=== PATIENT | female | born 1945 | race Two or more races ===

== ENCOUNTER 2020-12-20 15:28 | Inpatient (IN) | payer BC, SELFPAY ==
[~2020-12-20] VITALS: Ht 157.5 cm; Wt 68.0 kg
[2020-12-20 15:35] VITALS: BP 90/46
[2020-12-20] MEDS ORDERED: LIDOCAINE/EPI 1% 1:100000 20 ML VIAL INJ ONE (15:35)
--- NOTE | 2020-12-20 15:35 | NUR ---
BIBA TO BED 02
[2020-12-20] MEDS ORDERED: TRANEXAMIC ACID 1,000 MG/10 ML VIAL MC ONE (15:40)
[2020-12-20] MEDS ORDERED: NACL 0.9% 1,000 ML IV ONE (15:40)
--- NOTE | 2020-12-20 15:40 | NUR ---
DR HERNANDEZ AT BEDSIDE EXAMINING PT
--- NOTE | 2020-12-20 15:40 | NUR ---
75 Y/O FEMALE BIBA FROM HOME C/O RECTAL BLEEDING X1 HOUR AGO. PER EMS PT HAD 30-40 ML OF BLEEDING AT HOME. WITH NAUSEA/VOMITING. PALE, COOL TO TOUCH. LT AC 20 G PLACED BY EMS INFUSING NS BOLUS. [facility] GAVE ZOFRAN. MEDHX: DM, HTN, STENTS, SURGERY FOR HEMORRHOIDS, AND ON BLOOD THINNERS NKA
--- NOTE | 2020-12-20 15:45 | NUR ---
DR HERNANDEZ AT BEDSIDE PERFORMING PROCEDURE
--- NOTE | 2020-12-20 16:11 | NUR ---
BLOOD LABS COLLECTED AND SENT TO LAB
--- NOTE | 2020-12-20 16:19 | NUR ---
DAUGHTER AT BEDSIDE
[2020-12-20] MEDS ORDERED: AMLO10TA89 PO (16:39)
[2020-12-20] MEDS ORDERED: CLOP75TA55 PO (16:39)
[2020-12-20] MEDS ORDERED: LEVO125C2 PO (16:39)
[2020-12-20] MEDS ORDERED: ASPI-1749 PO (16:39)
[2020-12-20] MEDS ORDERED: METO25TE2 PO (16:39)
[2020-12-20] MEDS ORDERED: CHLO25TA33 PO (16:39)
[2020-12-20] MEDS ORDERED: GLIP5TER PO (16:39)
[2020-12-20] MEDS ORDERED: SIMV20TA1 PO (16:39)
[2020-12-20] MEDS ORDERED: PAX10 PO (16:39)
[2020-12-20] MEDS ORDERED: POTA10TE30 PO (16:39)
[2020-12-20 16:48] LABS: BASOPHILS # (AUTO) 0.1 K/uL (0.00-0.22); BASOPHILS % (AUTO) 0.6 % (0.0-2.0); EOSINOPHILS # (AUTO) 0.2 K/uL (0-0.4); EOSINOPHILS % (AUTO) 1.5 % (0.0-4.0); HEMATOCRIT 27.2 % (36-48); HEMOGLOBIN 8.7 g/dL (12.0-16.0); LYMPHOCYTES # (AUTO) 3.3 K/uL (2.5-16.5); LYMPHOCYTES % (AUTO) 21.3 % (20.5-51.1); MEAN CORPUSCULAR HEMOGLOBIN 24 pg (27-31); MEAN CORPUSCULAR HGB CONC 32 g/dL (33-37); MEAN CORPUSCULAR VOLUME 73.8 fL (80-94); MONOCYTES # (AUTO) 1.1 K/uL (0.8-1.0); MONOCYTES % (AUTO) 7.1 % (1.7-9.3); NEUTROPHILS # (AUTO) 10.8 K/uL (1.8-7.7); NEUTROPHILS % (AUTO) 69.5 % (42.2-75.2); PLATELET COUNT (AUTO) 393 K/uL (140-450); RED BLOOD CELL COUNT(AUTO) 3.68 MIL/uL (4.20-5.40); WHITE BLOOD COUNT (AUTO) 15.5 K/uL (4.8-10.8)
[2020-12-20 16:57] LABS: PROTHROMBIN TIME 10.8 secs (10.8-13.4)
[2020-12-20 16:59] LABS: ALBUMIN 2.9 g/dL (3.4-5.0); ANION GAP 16.2 (8-16); ASPARTATE AMINOTRANSFERASE 26 U/L (15-37); CARBON DIOXIDE 20.5 mmol/L (21-32); CHLORIDE 108 mmol/L (98-107); CREATININE 1.5 mg/dL (0.6-1.3); GLUCOSE 265 mg/dL (74-106); LIPASE 58 U/L (73-393); POTASSIUM 3.7 mmol/L (3.5-5.1); SODIUM SERUM 141 mmol/L (136-145); TOTAL BILIRUBIN 0.4 mg/dL (0.0-1.0); UREA NITROGEN, BLOOD 22 mg/dL (7-18)
[2020-12-20] MEDS ORDERED: MORPHINE SULFATE 4 MG/ML SYR IVP ONE (17:10)
--- NOTE | 2020-12-20 17:39 | NUR ---
NGA SWAB COLLECTED AND SENT TO LAB
--- NOTE | 2020-12-20 18:09 | NUR ---
OH AT BEDSIDE EXAMINING PT
--- NOTE | 2020-12-20 19:03 | NUR ---
PT REQKIMBERLYNING FOR ICE CHIPS. PER DR ANGELA MOULTON TO GIVE. PROVIDED PT ICE CHIPS.
--- NOTE | 2020-12-20 19:14 | NUR ---
Pt report given to FREDDY PRADO. Transfer of care at this time.
--- NOTE | 2020-12-20 19:45 | NUR ---
RESTING WITH EYESOPEN RESPIRATIONS REGULAR AND UNLABORED.
--- NOTE | 2020-12-20 20:30 | NUR ---
AWAKE, DIAPER CHANGED, SMALL AMOUNT RED DRAINAGE NOTED. REPOSITIONED FOR COMFORT
[2020-12-20] MEDS ORDERED: POTASSIUM CHLORIDE 10 MEQ TABER PO PRN (21:00)
[2020-12-20] MEDS ORDERED: MORPHINE SULFATE 4 MG/ML SYR IVP PRN (21:00)
[2020-12-20] MEDS ORDERED: KCL 20 MEQ/WATER INJ PREMIX 200 ML IV PRN (21:00)
[2020-12-20] MEDS ORDERED: MAGNESIUM OXIDE 400 MG TAB PO PRN (21:00)
[2020-12-20] MEDS ORDERED: ACETAMINOPHEN 325 MG TAB PO PRN (21:00)
[2020-12-20] MEDS ORDERED: MAG SULF 2000 MG/WATER PREMIX 50 ML IV PRN (21:00)
[2020-12-20] MEDS ORDERED: ONDANSETRON 4 MG/2 ML VIAL IVP PRN (21:00)
[2020-12-20] MEDS: NACL 0.9% 1,000 ML IV SCH (22:35)
--- NOTE | 2020-12-21 | NUR ---
RESTING COMFORTABLY, AWAKE. WATER GICEN
--- NOTE | 2020-12-21 02:00 | NUR ---
Patient appears to be resting comfortably in bed. Vital Signs within normal limits. Respirations even and unlabored.
--- NOTE | 2020-12-21 06:00 | NUR ---
RESTING IN BEDWITH EYES CLOSED. RESPIRATIONS REGULAR AND UNLABORED
[2020-12-21 06:57] LABS: BASOPHILS # (AUTO) 0.1 K/uL (0.00-0.22); BASOPHILS % (AUTO) 0.6 % (0.0-2.0); EOSINOPHILS % (AUTO) 0.1 % (0.0-4.0); HEMATOCRIT 23.3 % (36-48); HEMOGLOBIN 7.5 g/dL (12.0-16.0); LYMPHOCYTES # (AUTO) 1.6 K/uL (2.5-16.5); LYMPHOCYTES % (AUTO) 19.4 % (20.5-51.1); MEAN CORPUSCULAR HEMOGLOBIN 24 pg (27-31); MEAN CORPUSCULAR HGB CONC 32 g/dL (33-37); MEAN CORPUSCULAR VOLUME 74.5 fL (80-94); MONOCYTES # (AUTO) 0.7 K/uL (0.8-1.0); MONOCYTES % (AUTO) 7.9 % (1.7-9.3); NEUTROPHILS # (AUTO) 6.1 K/uL (1.8-7.7); PLATELET COUNT (AUTO) 260 K/uL (140-450); RED BLOOD CELL COUNT(AUTO) 3.13 MIL/uL (4.20-5.40); WHITE BLOOD COUNT (AUTO) 8.5 K/uL (4.8-10.8)
[2020-12-21 07:10] LABS: ALBUMIN 2.8 g/dL (3.4-5.0); ANION GAP 12.5 (8-16); ASPARTATE AMINOTRANSFERASE 19 U/L (15-37); CARBON DIOXIDE 22.6 mmol/L (21-32); CHLORIDE 106 mmol/L (98-107); GLUCOSE 254 mg/dL (74-106); SODIUM SERUM 135 mmol/L (136-145); TOTAL BILIRUBIN 0.4 mg/dL (0.0-1.0); UREA NITROGEN, BLOOD 33 mg/dL (7-18)
[2020-12-21 07:14] LABS: POTASSIUM 6.1 mmol/L (3.5-5.1)
[2020-12-21 07:31] LABS: PROTHROMBIN TIME 10.4 secs (10.8-13.4)
--- NOTE | 2020-12-21 07:45 | NUR ---
Spoke to Dr. Coon, made aware of porassiaum 6.1, new order noted and carried out. Pt is resting comfortably in bed. No distress at this time.
--- NOTE | 2020-12-21 08:57 | NUR ---
Patient will be admitted to care of DR. Chauhan. Admited to TELE. Will go to room 123b. Belongings list completed. Report to . Addendum: 12/21/20 at 1122 by [facility] Report given to Steve PRADO
--- NOTE | 2020-12-21 08:57 | NUR ---
RECEIVED REPORT FROM ER NURSE OVER THE PHONE. AWAITING FOR PATIENT TO ARRIVE TO THE UNIT.
[2020-12-21 08:59] VITALS: BP 137/64
--- NOTE | 2020-12-21 08:59 | NUR ---
PATIENT HAS BEEN SCREENED AND CATEGORIZED LOW NUTRITION RISK. PATIENT WILL BE SEEN WITHIN 7 DAYS OF ADMISSION. 12/27/[address]
--- NOTE | 2020-12-21 10:15 | NUR ---
MD AT BEDSIDE DISCUSSING PLAN OF CARE W/ PATIENT. ENDORSED TO PATIENT THE RISK AND BENEFITS OF BLOOD TRANSFUSION. PT VERBALIZED UNDERSTANDING. WITNESS BOTH MD AND PATIENT SIGN THE CONSENT FORM FOR BLOOD TRANSFUSION.
[2020-12-21] MEDS ORDERED: ACETAMINOPHEN EXTRA STRENGTH 500 MG TAB PO SCH (10:18)
[2020-12-21] MEDS: NACL 0.9% 1,000 ML IV SCH ×5 (10:30→23:15)
[2020-12-21 10:34] LABS: ALBUMIN 2.9 g/dL (3.4-5.0); ANION GAP 13.3 (8-16); ASPARTATE AMINOTRANSFERASE 18 U/L (15-37); CARBON DIOXIDE 22.7 mmol/L (21-32); CHLORIDE 107 mmol/L (98-107); CREATININE 2.1 mg/dL (0.6-1.3); GLUCOSE 235 mg/dL (74-106); SODIUM SERUM 138 mmol/L (136-145); TOTAL BILIRUBIN 0.4 mg/dL (0.0-1.0); UREA NITROGEN, BLOOD 34 mg/dL (7-18)
[2020-12-21 12:00] VITALS: BP 140/56
--- NOTE | 2020-12-21 12:30 | NUR ---
WAS NOTIFIED BY DR. DE LUNA THAT PATIENT WILL BE HAVING A PROCEDURE TODAY. SETTING UP CONSENT FORMS FOR .
[2020-12-21] MEDS ORDERED: LIDOCAINE 1% 500 MG/50 ML VIAL ONE (13:05)
[2020-12-21] MEDS ORDERED: BUPIVACAINE-MPF 0.25% 30 ML VIAL INJ ONE (13:05)
[2020-12-21] MEDS ORDERED: HYDROGEN PEROXIDE 3% 240 ML BTL TP ONE (13:06)
--- NOTE | 2020-12-21 13:15 | NUR ---
PATIENT TRANSPORTED TO OR UNIT.
[2020-12-21] MEDS ORDERED: fentaNYL citrate 0.05 MG/ML VIAL ONE (13:28)
[2020-12-21] MEDS ORDERED: SEVOFLURANE 250 ML BTL INH ONE (13:45)
[2020-12-21] MEDS ORDERED: HYDROcodone/APAP 5/325 MG 1 TAB TAB PO PRN (14:00)
[2020-12-21] MEDS ORDERED: GELATIN SPONGE 100 1 SPG TP ONE (14:11)
[2020-12-21] MEDS ORDERED: DEXTROSE 50% 50 ML SYR IVP PRN (14:40)
[2020-12-21] MEDS ORDERED: ETOMIDATE 20 MG/10 ML VIAL IVP ONE (14:40)
[2020-12-21] MEDS ORDERED: METOCLOPRAMIDE 10 MG/2 ML INJ VIAL ONE (14:41)
[2020-12-21] MEDS ORDERED: ONDANSETRON 4 MG/2 ML VIAL ONE (14:41)
[2020-12-21] MEDS ORDERED: SUCCINYLCHOLINE CHLORIDE 200 MG/10 ML VIAL IVP ONE (14:41)
[2020-12-21] MEDS ORDERED: ROCURONIUM 50 MG/5 ML VIAL IV ONE (14:41)
[2020-12-21] MEDS ORDERED: LIDOCAINE MPF 2% 100 MG/5 ML VIAL INJ ONE (14:41)
[2020-12-21] MEDS ORDERED: GLYCOPYRROLATE 0.2 MG/ML VIAL ONE ×2 (14:41→14:42)
[2020-12-21] MEDS ORDERED: NEOSTIGMINE 1:1000 10 MG/10 ML VIAL ONE (14:42)
[2020-12-21] MEDS ORDERED: fentaNYL citrate 0.05 MG/ML VIAL IVP PRN (14:55)
[2020-12-21] MEDS ORDERED: BLOOD GLUCOSE MONITORING 1 DEV DEV FS ONE (14:55)
[2020-12-21] MEDS ORDERED: ONDANSETRON 4 MG/2 ML VIAL IVP PRN (14:55)
[2020-12-21] MEDS ORDERED: diphenhydrAMINE 50 MG/ML VIAL IVP PRN (14:55)
[2020-12-21] MEDS ORDERED: MEPERIDINE 25 MG/ML SYR IVP PRN (14:55)
--- NOTE | 2020-12-21 15:45 | NUR ---
PATIENT TRANSFERRED BACK TO HER ROOM. PT IS AWAKE AND STABLE. WILL ASSESS VITAL SIGNS FOR THE NEXT 2 HOURS Addendum: 12/21/20 at 1813 by Steve Howard RN RN S/P 1 UNIT OF PRBC
[2020-12-21 16:00] VITALS: BP 133/76
--- NOTE | 2020-12-21 17:27 | NUR ---
PATIENT COMPLAINED OF 10/10 RECTUM PAIN. ADMINISTERED PRN PAIN MEDICATIONS PER MD ORDERED.
[2020-12-21] MEDS: BLOOD GLUCOSE MONITORING 1 DEV DEV FS SCH ×2 (17:30→20:50)
--- NOTE | 2020-12-21 17:30 | NUR ---
BLOOD GLUCOSE CHECK WAS 241. INSULIN COVERAGE NEEDED. ADMINISTERED 4 UNITS OF INSULIN SQ PER MD ORDERED.
[2020-12-21] MEDS: INSULIN LISPRO SLIDING SCALE 100 UNITS/ML VIAL SUBQ PRN ×2 (17:35→20:52)
--- NOTE | 2020-12-21 19:25 | NUR ---
ENDORSED TO SEED SALES MANAGER NURSE FOR CONTINUITY OF CARE. PT IS STABLE.
--- NOTE | 2020-12-21 19:26 | NUR ---
RECEIVED REPORT FROM AM NURSE. PATIENT LYING IN BED COMFORTABLY. NO SOB NOTED. SAFETY MEASURES IN PLACE. IVF INFUSING AND TOLERATING WELL. NO COMPLAINTS OF PAIN AT THIS TIME. CALL LIGHT WITHIN REACH. WILL CONTINUE TO MONITOR.
[2020-12-21 20:00] VITALS: BP 108/54
[2020-12-22] VITALS: BP 112/52
[2020-12-22] MEDS: HYDROcodone/APAP 5/325 MG 1 TAB TAB PO PRN ×2 (00:27→10:37)
[2020-12-22] MEDS: NACL 0.9% 1,000 ML IV SCH ×3 (02:43→16:44)
[2020-12-22 04:00] VITALS: BP 137/54
--- NOTE | 2020-12-22 04:00 | NUR ---
NO BLEEDING NOTED AT THIS TIME.
[2020-12-22 06:16] LABS: ALBUMIN 2.9 g/dL (3.4-5.0); ANION GAP 18.8 (8-16); ASPARTATE AMINOTRANSFERASE 17 U/L (15-37); CARBON DIOXIDE 18.9 mmol/L (21-32); CHLORIDE 108 mmol/L (98-107); CREATININE 1.5 mg/dL (0.6-1.3); GLUCOSE 203 mg/dL (74-106); MAGNESIUM 1.8 mg/dL (1.8-2.4); POTASSIUM 4.7 mmol/L (3.5-5.1); SODIUM SERUM 141 mmol/L (136-145); TOTAL BILIRUBIN 0.7 mg/dL (0.0-1.0); UREA NITROGEN, BLOOD 25 mg/dL (7-18)
[2020-12-22] MEDS: INSULIN LISPRO SLIDING SCALE 100 UNITS/ML VIAL SUBQ PRN ×4 (06:39→20:41)
[2020-12-22] MEDS: BLOOD GLUCOSE MONITORING 1 DEV DEV FS SCH ×4 (06:39→21:41)
[2020-12-22 06:48] LABS: BASOPHILS # (AUTO) 0.1 K/uL (0.00-0.22); BASOPHILS % (AUTO) 0.8 % (0.0-2.0); EOSINOPHILS # (AUTO) 0.2 K/uL (0-0.4); EOSINOPHILS % (AUTO) 2.4 % (0.0-4.0); HEMATOCRIT 26.7 % (36-48); HEMOGLOBIN 8.6 g/dL (12.0-16.0); LYMPHOCYTES # (AUTO) 2.3 K/uL (2.5-16.5); MEAN CORPUSCULAR HEMOGLOBIN 25 pg (27-31); MEAN CORPUSCULAR HGB CONC 32 g/dL (33-37); MEAN CORPUSCULAR VOLUME 76.9 fL (80-94); MONOCYTES # (AUTO) 0.9 K/uL (0.8-1.0); MONOCYTES % (AUTO) 8.9 % (1.7-9.3); NEUTROPHILS # (AUTO) 6.2 K/uL (1.8-7.7); NEUTROPHILS % (AUTO) 63.9 % (42.2-75.2); PLATELET COUNT (AUTO) 226 K/uL (140-450); RED BLOOD CELL COUNT(AUTO) 3.47 MIL/uL (4.20-5.40); RED CELL DISTRIBUTION WIDTH 24.7 % (11.6-13.7); WHITE BLOOD COUNT (AUTO) 9.7 K/uL (4.8-10.8)
--- NOTE | 2020-12-22 07:35 | NUR ---
ENDORSED TO AM NURSE FOR CONTINUITY OF CARE. PT IS STABLE.
--- NOTE | 2020-12-22 07:54 | NUR ---
RECEIVED PT AWAKE, ORIENTED, NO PAIN NOTED, SKIN WARM TO TOUCH RESP. EVEN AND UNLABORED, PER PT WHEN SHE HAS BOWEL MOVEMENT WITH TINGED BLOOD , NO DIZZINESS NOTED, ON ROOM AIR, CALL LIGHT WITHIN EASY REACH.
[2020-12-22 08:20] VITALS: BP 163/71
--- NOTE | 2020-12-22 10:29 | NUR ---
DR SADLER AT BEDSIDE
--- NOTE | 2020-12-22 10:48 | NUR ---
PATIENT ALERT, AWAKE WATCHING TV AT THIS TIME, VERY COOPERATIVE, NO UNUSUAL OBSERVATION NOTED.
--- NOTE | 2020-12-22 13:55 | NUR ---
ASSISTED TO THE BATHROOM, PATIENT ALERT, ORIENTED, NO SOB NOTED, NO BLEEDING NOTED
--- NOTE | 2020-12-22 15:37 | NUR ---
DC PLANNING: CM MET WITH PATIENT AT BEDSIDE. PATIENT ADMITTED THROUGH THE ER WITH RECTAL S/P SURGERY AT [facility] ABOUT A WEEK AGO. PATIENT HAD BEEN SEEN AT HER PCP'S OFFICE AND WAS DIRECTED TO GO TO [facility], PATIENTS DAUGHTER FELT SHE WAS BLEEDING TOO MUCH AND CALLED 911 WHO BROUGHT HER HERE. THE PATIENT LIVES ALONE IN A SINGLE [place]ORY [place], NO RECENT H/O HOME HEALTH, HAS DME OF A GLUCOMETER. THE PATIENT CHECKS HER BLOOD SUGARS INFREQUENTLY AND DOES FOLLOW UP WITH HER PCP TWICE A YEAR. HER DAUGHTER, GRANDCHILDREN AND FRIENDS PROVIDE TRANSPORT NEEDED AND THE PATIENT SOMETIMES DRIVES WHEN SHE FEELS WELL ENOUGH. SHE STATES THAT HOME HEALTH WAS SET UP FOR HER AT [facility], CM LEFT A VM FOR [facility] [employer] [facility]FT ([phone]) ENDORSING THAT PATIENT WILL STILL NEED HOME HEALTH AND ASKING FOR THEIR NAME AND CONTACT INFORMATION. CM WILL FOLLOW FOR NEEDS. Addendum: 12/24/20 at 1203 by Cony Renee CM DC PLANNING: ORDER RECEIVED TO SET UP A TELE VIDEO VISIT THROUGH [facility]. ANA SPOKE WITH ANA METZ FOR [facility] WHO STATES THEY HAVE ALREADY SET UP HER APPOINTMENT. CM WILL FOLLOW NEEDED.
--- NOTE | 2020-12-22 16:57 | NUR ---
PT ALERT ORIENTED, NO C/O PAIN PER PATIENT HER DAUGHTER CANCEL HER APPOINTMENT FOR TOMORROW AND WILL JUST RESCHEDULE, VF ONGOING WELL TOLERATED, PER PT SHE WILL GO HOME TOMORROW
[2020-12-22 18:08] VITALS: BP 162/56
--- NOTE | 2020-12-22 18:49 | NUR ---
PATIENT EATING AT THIS TIME, NO UNUSUAL OBSERVATION NOTED
--- NOTE | 2020-12-22 19:20 | NUR ---
RECEIVED PT ON BED WATCHING TV, AAOX4, ABLE TO MAKE NEEDS KNOWN, IVF INFUSING WELL, DENIES ANY PAIN, PLAN OF CARE DISCUSSED, SAFETY MEASURES IN PLACE, CALL LIGHT WITHIN REACH.
[2020-12-22 20:00] VITALS: BP 149/81
--- NOTE | 2020-12-22 21:00 | NUR ---
BLOOD SUGAR CHECKED WITH 186 RESULT, COVERAGE GIVEN, SNACK PROVIDED, ALL NEEDS ATTENDED.
--- NOTE | 2020-12-22 23:50 | NUR ---
AMBULATED TO BR WITH STEADY GAIT, STATED VOIDED FREELY, NO BLEEDING NOTED, IVF INFUSING WELL, MONITORED CLOSELY.
[2020-12-23] MEDS: NACL 0.9% 1,000 ML IV SCH ×2 (00:15→05:02)
--- NOTE | 2020-12-23 01:30 | NUR ---
PT SLEEPING, NO SIGNS OF DISTRESS, IVF INFUSING WELL, MONITORED CLOSELY.
[2020-12-23 04:00] VITALS: BP 155/73
--- NOTE | 2020-12-23 04:10 | NUR ---
PT SLEEPING, EASILY AROUSABLE, VITAL SIGNS TAKEN, BP SLIGHTLY ELEVATED, ASYMPTOMATIC, DENIES CHEST PAIN, NO SOB NOTED, IVF INFUSING WELL, MONITORED CLOSELY.
[2020-12-23 05:47] LABS: BASOPHILS % (AUTO) 0.6 % (0.0-2.0); EOSINOPHILS # (AUTO) 0.2 K/uL (0-0.4); EOSINOPHILS % (AUTO) 3.6 % (0.0-4.0); HEMATOCRIT 23.8 % (36-48); HEMOGLOBIN 7.8 g/dL (12.0-16.0); LYMPHOCYTES # (AUTO) 1.2 K/uL (2.5-16.5); LYMPHOCYTES % (AUTO) 21.4 % (20.5-51.1); MEAN CORPUSCULAR HEMOGLOBIN 25 pg (27-31); MEAN CORPUSCULAR HGB CONC 33 g/dL (33-37); MEAN CORPUSCULAR VOLUME 77.5 fL (80-94); MONOCYTES # (AUTO) 0.5 K/uL (0.8-1.0); MONOCYTES % (AUTO) 9.4 % (1.7-9.3); NEUTROPHILS # (AUTO) 3.8 K/uL (1.8-7.7); PLATELET COUNT (AUTO) 193 K/uL (140-450); RED BLOOD CELL COUNT(AUTO) 3.06 MIL/uL (4.20-5.40); RED CELL DISTRIBUTION WIDTH 25.4 % (11.6-13.7); WHITE BLOOD COUNT (AUTO) 5.8 K/uL (4.8-10.8)
[2020-12-23 05:58] LABS: PROTHROMBIN TIME 10.5 secs (10.8-13.4)
[2020-12-23] MEDS: INSULIN LISPRO SLIDING SCALE 100 UNITS/ML VIAL SUBQ PRN ×2 (06:06→12:15)
--- NOTE | 2020-12-23 06:06 | NUR ---
BLOOD SUGAR CHECKED WITH 165 RESULT, RISS COVERAGE GIVEN, DENIES ANY PAIN, IVF INFUSING WELL, MONITORED CLOSELY.
[2020-12-23 06:28] LABS: ALBUMIN 2.5 g/dL (3.4-5.0); ANION GAP 14.1 (8-16); ASPARTATE AMINOTRANSFERASE 19 U/L (15-37); CARBON DIOXIDE 22.2 mmol/L (21-32); CHLORIDE 109 mmol/L (98-107); CREATININE 0.9 mg/dL (0.6-1.3); GLUCOSE 166 mg/dL (74-106); MAGNESIUM 1.5 mg/dL (1.8-2.4); POTASSIUM 4.3 mmol/L (3.5-5.1); SODIUM SERUM 141 mmol/L (136-145); TOTAL BILIRUBIN 0.6 mg/dL (0.0-1.0); UREA NITROGEN, BLOOD 7 mg/dL (7-18)
[2020-12-23] MEDS: BLOOD GLUCOSE MONITORING 1 DEV DEV FS SCH ×2 (06:43→11:51)
--- NOTE | 2020-12-23 07:20 | NUR ---
PT AWAKE, NO SIGNS OF DISTRESS, REPORT GIVEN TO RN VANESA FOR CONTINUITY OF CARE.
--- NOTE | 2020-12-23 07:25 | NUR ---
REPORT RECEIVED FROM SUPERVISOR INSPECTION RN. PT RESTING IN BED, EYES CLOSED BREATHING IS SYMMETRICAL.
--- NOTE | 2020-12-23 09:36 | NUR ---
MEDICATIONS GIVEN PER MD ORDER. PT EDUCATED VERBALIZED UNDERSTANDING . NO QUESTIONS AT THIS TIME. ALL SAFETY MEASURES ARE IN PLACE.
--- NOTE | 2020-12-23 11:51 | NUR ---
BG 220 , PRN MEDICATION GIVEN PER MD ORDER. PT EDUCATED AND VERBALIZED UNDERSTANDING
[2020-12-23 12:00] VITALS: BP 158/69
--- NOTE | 2020-12-23 13:49 | NUR ---
PRE TRANSFUSION VIALS OBTAINED. ALL WNL
--- NOTE | 2020-12-23 13:50 | NUR ---
BLOOD OBTAINED FROM BLOOD BANK
--- NOTE | 2020-12-23 14:05 | NUR ---
BLOOD TRANSFUSION STARTED . PT EDUCATED AND VERBALIZED UNDERSTANDING . 2 RN VERIFICATION COMPLATE. ALL SAFETY MEASURES IN PLACE
--- NOTE | 2020-12-23 14:20 | NUR ---
PTS VITALS REASSESSED. PT DENIES ANY ITCHING SOB, DIZZINESS OR MALAISE
--- NOTE | 2020-12-23 16:31 | NUR ---
PT REASSESSED 50 MLS LEFT OF TRANSFUSION VS WNL.
--- NOTE | 2020-12-23 17:02 | NUR ---
BLOOD TRANSFUSION COMPLTE PT TOLERATED WELL NO S/SX OF DISTRESS. ALL SAFETY MEASURES ARE IN PLACE.
--- NOTE | 2020-12-23 17:30 | NUR ---
PT INSTRUCTIONS COMPLETE PT VERBALIZED UNDERSTANDING FOR CONTINUITY OF CARE. PT EDUCATED ON INCREASING FIBER FLUID FITNESS. PT INSTRUCTED TO START ASPIRIN ON 12/30 PER MD ORDER AND TO FOLLO UP WITH PRIMARY CARE. PT IV REMOVED CANULA INTACT. PRESCRIPTIONS GIVEN COPY IN CHART.
--- NOTE | 2020-12-23 18:25 | NUR ---
PT LEFT UNIT VIA WHEEL CHAIR. PT AMBULATED TO PRIVATE VEHICLE
== END 2020-12-23 18:30 | disposition home health service (06) | DRG 348 ==
LOC: MED 15:28 → MTU 21:04
PROVIDERS: ADMIT Internal Medicine; ATTEND Internal Medicine
PROC: 30233N1 Transfusion of Nonautologous Red Blood Cells into Peripheral Vein, Percutaneous Approach (ICD-10-PCS; 2020-12-21)
PROC: 06LY4CC Occlusion of Hemorrhoidal Plexus with Extraluminal Device, Percutaneous Endoscopic Approach (ICD-10-PCS; principal; 2020-12-21 12:50)
DX: K64.8 Other hemorrhoids (principal); D62 Acute posthemorrhagic anemia; E44.0 Moderate protein-calorie malnutrition; I25.10 Atherosclerotic heart disease of native coronary artery without angina pectoris; E11.9 Type 2 diabetes mellitus without complications; K74.60 Unspecified cirrhosis of liver; I10 Essential (primary) hypertension; Z20.822 Contact with and (suspected) exposure to COVID-19; Z79.82 Long term (current) use of aspirin; Z79.899 Other long term (current) drug therapy; Z95.1 Presence of aortocoronary bypass graft; Z90.49 Acquired absence of other specified parts of digestive tract; Z68.27 Body mass index [BMI] 27.0-27.9, adult
CPT/HCPCS: 36415; 71045; 80053; 82948; 83690; 83735; 83880; 84484; 85025; 85610; 85730; 86886; 86900; 86901; 86920; 87081; 93005; 96361; 96374; 99291; J0330; J2001; J2175; J2270; J2405; J2710; J2765; J3010; J3490; J7030; P9016; Q0092; Q0163